=== PATIENT | female | born 1985 | race African-American/Black ===

== ENCOUNTER 2017-07-16 18:37 | Emergency (ER) | payer OTHER ==
[2017-07-16 18:54] VITALS: BP 127/95; PULSE 80; TEMP 98.4; BMI 29.2
--- NOTE | 2017-07-16 19:56 | PDOC ---
History of Present Illness - General Chief Complaint: Ear Problem Stated Complaint: EAR PAIN Time Seen by Provider: 07/16/17 19:43 History Source: Patient - History of Present Illness Timing/Duration: reports: yesterday Associated Symptoms: reports: earache. denies: fever/chills, sore throat Past History - Past Medical History Allergies/Adverse Reactions: Allergies Allergy/AdvReac Type Severity Reaction Status Date / Time No Known Allergies Allergy Verified 07/16/17 18:51 Home Medications: Ambulatory Orders No Home Medications 0 dose .ROUTE UTDICT 10/15/13 Mupirocin Ointment [Bactroban 2% Ointment -] 1 applic TP BID #1 tube 03/16/16 Sulfamethoxazole/Trimethoprim [Bactrim Ds -] 1 tab PO BID #14 tablet 03/16/16 COPD: No Other medical history: DENIES. - Suicide/Smoking/Psychosocial Hx Smoking Status: No Smoking History: Never smoked Have you smoked in the past 12 months: No Number of Cigarettes Smoked Daily: 0 Hx Alcohol Use: No Drug/Substance Use Hx: No Substance Use Type: None Review of Systems - Review of Systems Constitutional: No: Fever HEENTM: Yes: Ear Pain. No: Throat Pain Respiratory: No: Cough *Physical Exam - Vital Signs Last Vital Signs Temp Pulse Resp BP Pulse Ox 98.4 F 80 16 127/95 100 07/16/17 18:51 07/16/17 18:51 07/16/17 18:51 07/16/17 18:51 07/16/17 18:51 - Physical Exam General Appearance: Yes: Appropriately Dressed. No: Apparent Distress HEENT: positive: Normal ENT Inspection. negative: Tonsillar Exudate, Tonsillar Erythema, TM Bulging, TM Dull Neck: positive: Supple. negative: Lymphadenopathy (R), Lymphadenopathy (L) Respiratory/Chest: negative: Respiratory Distress Integumentary: positive: Dry, Warm Neurologic: positive: Fully Oriented, Alert, Normal Mood/Affect Medical Decision Making - Medical Decision Making 07/16/17 19:54 31-year-old female, no significant history, here with discomfort to her right ear since yesterday. No ear pain, otorrhea, HL, sore throat, RICKETTS, fever or chills. No recent URI. Admits to using Q-tips. No tob use. Patient well- appearing and stable with unremarkable HEENT exam. Will dc with ENT follow-up if symptoms persist 07/16/17 19:56 *DC/Admit/Observation/Transfer Diagnosis at time of Disposition: Ear discomfort Qualifiers: Laterality: right Qualified Code(s): H92.01 - Otalgia, right ear - Discharge Dispostion Disposition: HOME - Referrals Referrals: Zackery Tavarez MD [Staff Physician] - - Patient Instructions Additional Instructions: The cause of your symptoms are unclear at this time as your exam is normal. Taking Sudafed for symptoms as needed. Please follow-up with Dr. Tavarez of ENT in 1 week - Post Discharge Activity
== END 2017-07-16 20:08 | disposition home or self-care (01) ==
LOC: JERFT 18:37
DX: H92.01 Otalgia, right ear (principal)
CPT/HCPCS: 99281-25